=== PATIENT | female | born 1970 | race African-American/Black ===

== ENCOUNTER 2017-06-02 14:51 | Emergency (ER) | payer OTHER, SELFPAY | END 2017-06-02 15:08 | disposition home or self-care (01) | LOC: ERS 14:51 | DX: L73.9 Follicular disorder, unspecified (principal) | CPT/HCPCS: 99282 ==

== ENCOUNTER 2018-01-03 09:45 | Emergency (ER) | payer OTHER, SELFPAY ==
[2018-01-03 10:09] LABS: #Basophils 0.1 thou/uL (0.0-0.2); #Eosinphils 0.1 thou/uL (0.0-0.7); #Lymphocytes 2.2 thou/uL (1.20-3.40); #Monocytes 0.4 thou/uL (0.11-0.59); #Neutrophils 3.7 thou/uL (1.40-6.50); %Eosinophils 1.1 % (0.0-10.0); %Lymphocytes 34.4 % (21.0-51.0); %Monocytes 5.6 % (0.0-10.0); %Neutrophils 57.9 % (42.0-75.0); Hemoglobin 10.8 g/dL (12.0-16.0); Mean Corpuscular HGB CONC 31.8 g/dL (32.0-36.0); Mean Corpuscular Hemoglobin 26.4 pg (27.0-31.0); Mean Corpuscular Volume 83.1 fL (78.0-98.0); Platelet Count 300 thou/uL (130-400); RBC Distribution Width 12.9 % (11.5-14.5); Red Blood Cell (RBC) Count 4.11 mill/uL (4.20-5.40); White Blood Cell (WBC) Count 6.5 thou/uL (4.8-10.8)
[2018-01-03] MEDS ORDERED: Mag-Al 1200 mg/1200 mg/30 ML UDCUP ONE (10:43)
[2018-01-03] MEDS ORDERED: Lidocaine Viscous Sol 2% 15 ml UD Cup ONE (10:43)
[2018-01-03 10:45] LABS: ALT (SGPT) 8 U/L (8-55); AST (SGOT) 10 U/L (5-34); Alkaline Phosphatase 61 U/L (40-150); Anion Gap 10 mmol/L (10-20); BUN (Urea Nitrogen) 11 mg/dL (7.0-18.7); Bilirubin, Total 0.4 mg/dL (0.2-1.2); CK (CPK) 134 U/L (29-168); Calc. Creatinine Clearance 0 mL/min (70-130); Calcium 8.6 mg/dL (7.8-10.44); Carbon Dioxide 26 mmol/L (22-29); Chloride 108 mmol/L (98-107); Estimated GFR-MDRD 81; Globulin 3.2 g/dL (2.4-3.5); Glucose 96 mg/dL (70-105); Lipase 7 U/L (8-78); Potassium 3.6 mmol/L (3.5-5.1); Protein, Total 7.2 g/dL (6.0-8.3); Sodium 140 mmol/L (136-145)
[2018-01-03 10:49] LABS: CKMB 0.7 ng/mL (0-6.6); Troponin I Less than 0.010 ng/mL (< 0.028)
--- NOTE | 2018-01-03 11:05 | RAD ---
2 VIEW CHEST: Date: 01/03/18 No prior comparison. INDICATION: Epigastric pain. FINDINGS: Lungs are clear. No effusion. There is no free air beneath the hemidiaphragms. Cardiac silhouette is at upper limits of normal in size. Osseous structures reveal no acute findings. IMPRESSION: No focal consolidation. POS: [facility]
[2018-01-03 12:37] LABS: BHCG - Serum Negative (NEGATIVE); Pregs Control Background? CLEAR/WHITE (CLR/WHITE); Pregs Control Bar Appear? YES (CONTROL BAR)
== END 2018-01-03 12:47 | disposition home or self-care (01) ==
LOC: ERS 09:45
DX: R10.13 Epigastric pain (principal)
CPT/HCPCS: 36415; 71046; 80053; 82550; 82553; 83690; 84484; 84703; 85025; 93005

== ENCOUNTER 2018-02-19 23:37 | Emergency (ER) | payer SELFPAY ==
[2018-02-20 00:12] LABS: Bilirubin Negative (Negative); Blood, Urine Negative (Negative); Clarity CLEAR (Clear); Glucose, Urine (Dipstick) Negative (Negative); Leukocyte Negative (Negative); Nitrite Negative (Negative); Protein, Urine (Dipstick) Negative (Neg-Trace); Specific Gravity, Urine 1.024 (1.002-1.036); pH, Urine 6.5 (5.0-9.0)
[2018-02-20] MEDS ORDERED: Ondansetron ODT 4 MG TAB ONE (00:16)
[2018-02-20 00:17] LABS: Specific Gravity 1.024 (1.002-1.036)
[2018-02-20 00:19] LABS: Pregnancy Test - Urine (BHCG) Negative (Negative); Pregu Control Background? CLEAR/WHITE (CLR/WHITE); Pregu Control Bar Appear? YES (CONTROL BAR)
[2018-02-20 00:27] LABS: #Eosinphils 0.1 thou/uL (0.0-0.7); #Lymphocytes 1.7 thou/uL (1.20-3.40); #Monocytes 0.6 thou/uL (0.11-0.59); #Neutrophils 5.2 thou/uL (1.40-6.50); %Basophils 0.4 % (0.0-1.0); %Lymphocytes 22.1 % (21.0-51.0); %Monocytes 8.3 % (0.0-10.0); %Neutrophils 68.2 % (42.0-75.0); Hemoglobin 10.7 g/dL (12.0-16.0); Mean Corpuscular Hemoglobin 27.1 pg (27.0-31.0); Mean Corpuscular Volume 82.1 fL (78.0-98.0); Mean Platelet Volume 7.6 fL (7.4-10.4); Platelet Count 325 thou/uL (130-400); RBC Distribution Width 13.2 % (11.5-14.5); Red Blood Cell (RBC) Count 3.97 mill/uL (4.20-5.40); White Blood Cell (WBC) Count 7.6 thou/uL (4.8-10.8)
[2018-02-20] MEDS ORDERED: Lidocaine Viscous Sol 2% 15 ml UD Cup ONE (00:31)
[2018-02-20] MEDS ORDERED: Mag-Al 1200 mg/1200 mg/30 ML UDCUP ONE (00:31)
[2018-02-20 00:45] LABS: ALT (SGPT) 10 U/L (8-55); AST (SGOT) 10 U/L (5-34); Albumin 3.9 g/dL (3.5-5.0); Alkaline Phosphatase 62 U/L (40-150); Anion Gap 8 mmol/L (10-20); BUN (Urea Nitrogen) 8 mg/dL (7.0-18.7); Bilirubin, Total 0.3 mg/dL (0.2-1.2); Calc. Creatinine Clearance 0 mL/min (70-130); Calcium 8.8 mg/dL (7.8-10.44); Carbon Dioxide 28 mmol/L (22-29); Chloride 108 mmol/L (98-107); Estimated GFR-MDRD 76; Globulin 3.3 g/dL (2.4-3.5); Glucose 104 mg/dL (70-105); Lipase 14 U/L (8-78); Potassium 3.2 mmol/L (3.5-5.1); Protein, Total 7.2 g/dL (6.0-8.3); Sodium 141 mmol/L (136-145)
[2018-02-20 00:49] LABS: CKMB 0.6 ng/mL (0-6.6); Troponin I Less than 0.010 ng/mL (< 0.028)
[2018-02-20] MEDS ORDERED: Potassium Chloride 20 MEQ TAB ONE (01:22)
== END 2018-02-20 01:46 | disposition home or self-care (01) ==
LOC: ERS 23:37
DX: E87.6 Hypokalemia (principal); R10.13 Epigastric pain
CPT/HCPCS: 36415; 80053; 81003; 81025; 82553; 83690; 84484; 85025; 93005; Q0162

== ENCOUNTER 2018-04-04 19:41 | Emergency (ER) | payer SELFPAY ==
[2018-04-04] MEDS ORDERED: Ibuprofen 200 MG TAB ONE (20:16)
[2018-04-04] MEDS ORDERED: Acetaminophen 325 MG TAB ONE (20:16)
--- NOTE | 2018-04-04 20:34 | RAD ---
LEFT FOOT THREE VIEWS: 04/04/18 HISTORY: Left foot injury. FINDINGS: Lisfranc joint alignment is anatomic. Pes planus on the lateral view. Achilles and plantar enthesophy festus of the posterior aspect of the calcaneus. Osteophytosis throughout the foot. Mild bunion deformit y and hallux valgus. No acute fracture, dislocation, or aggressive osseous erosions. IMPRESSION: Mild degenerative changes. Heel spur. Mild hallux valgus and bunion deformity. POS: [facility]
--- NOTE | 2018-04-04 20:36 | RAD ---
RIGHT FOOT THREE VIEWS: 04/04/18 HISTORY: Stepped on a screw. Right foot injury. FINDINGS: internal fixation of the distal fibula is partially visualized. Lisfranc joint alignment is anatomic. Pes planus on the lateral view. Prominent plantar heel spur. Hallux valgus and bunion deformity. Mild scattered degenerative changes. No metallic foreign bodies a re apparent with the plantar surface of the foot. IMPRESSION: No plantar metallic foreign bodies. Hallux valgus and bunion deformity. Mild degenerative changes. Heel spur. POS: [facility]
== END 2018-04-04 20:47 | disposition home or self-care (01) ==
LOC: ERS 19:41
DX: M79.672 Pain in left foot (principal); M79.671 Pain in right foot

== ENCOUNTER 2018-11-26 15:21 | Emergency (ER) | payer SELFPAY ==
[2018-11-26 15:41] LABS: Bilirubin Small (Negative); Blood, Urine Negative (Negative); Clarity CLEAR (Clear); Glucose, Urine (Dipstick) Negative (Negative); Leukocyte Negative (Negative); Nitrite Negative (Negative); Protein, Urine (Dipstick) 30 mg/dL (Neg-Trace); Specific Gravity, Urine 1.031 (1.002-1.036); pH, Urine 5.5 (5.0-9.0)
[2018-11-26 15:43] LABS: Bacteria/HPF None Seen HPF (None Seen); Hyaline Casts/LPF 0-3 HYALINE CAST LPF (0-3 Hyaline); Pathc Cast-AUWi Flag 0.27 (0-2.49); Squamous Epithelial 0-3 HPF (0-3); WBC/HPF 0-3 HPF (0-3)
[2018-11-26] MEDS ORDERED: Ketorolac Tromethamine 30 MG/ML VIAL ONE (16:33)
== END 2018-11-26 17:20 | disposition home or self-care (01) ==
LOC: ERS 15:21
DX: M54.5 Low back pain (principal)
CPT/HCPCS: 81003; 81015; 96372; J1885

== ENCOUNTER 2019-03-15 21:24 | Emergency (ER) | payer SELFPAY ==
--- NOTE | 2019-03-15 23:05 | RAD ---
XR Foot Rt 3 View STANDARD HISTORY: Foot and ankle pain. COMPARISON: 04/04/2018 study. FINDINGS: Minimal arthritic changes of the first metatarsophalangeal joint are seen. Postoperative ch anges are again identified of the ankle. Arthritic change of the midfoot region are similar to the prior examination and calcaneal spurs are unchanged. IMPRESSION: Stable exam.
--- NOTE | 2019-03-15 23:06 | RAD ---
XR Foot Lt 3 View STANDARD HISTORY: Foot and ankle pain. COMPARISON: 04/04/2018 study. FINDINGS: Mild arthritic change the first metatarsal phalangeal joint are again identified. Talonavic ular degenerative changes are seen. Prominent calcaneal spurs are again noted. The plantar spur is larger than on the prior exam. IMPRESSION: Arthritic changes of the foot.
[2019-03-15] MEDS ORDERED: Ketorolac Tromethamine 60 MG/2 ML VIAL ONE (23:13)
[2019-03-15] MEDS ORDERED: Dexamethasone 4 mg/ml Vial ONE (23:13)
== END 2019-03-15 23:30 | disposition home or self-care (01) ==
LOC: ERS 21:24
DX: M79.671 Pain in right foot (principal); M79.672 Pain in left foot
CPT/HCPCS: J1100; J1885

== ENCOUNTER 2020-10-26 10:48 | Emergency (ER) | payer BC, SELFPAY ==
[2020-10-26] MEDS ORDERED: Albuterol 200 PUFF (6.7GM INHALER) ONE (12:09)
[2020-10-26 18:30] LABS: SARS-CoV-2 PCR by NAA Not Detected (NotDetected)
== END 2020-10-26 12:15 | disposition home or self-care (01) ==
LOC: ERS 10:48
DX: J40 Bronchitis, not specified as acute or chronic (principal); B97.89 Other viral agents as the cause of diseases classified elsewhere; Z20.822 Contact with and (suspected) exposure to COVID-19
CPT/HCPCS: 71046; 87635; 93005; U0003; U0005

== ENCOUNTER 2021-02-25 09:01 | Emergency (ER) | payer SELFPAY ==
[2021-02-25 13:01] LABS: SARS-CoV-2 NAA Rapid Test DETECTED (NotDetected)
== END 2021-02-25 10:30 | disposition home or self-care (01) ==
LOC: ERS 09:01
DX: U07.1 COVID-19 (principal)
CPT/HCPCS: 0240U; 99283

== ENCOUNTER 2021-06-22 12:14 | Emergency (ER) | payer SELFPAY ==
[2021-06-23 13:39] LABS: SARS-CoV-2 PCR by NAA Not Detected (NotDetected)
== END 2021-06-22 13:26 | disposition home or self-care (01) ==
LOC: ERS 12:14
DX: R43.8 Other disturbances of smell and taste (principal); Z20.822 Contact with and (suspected) exposure to COVID-19
CPT/HCPCS: 99284; U0003; U0005

== ENCOUNTER 2022-01-01 10:09 | Emergency (ER) | payer BC, SELFPAY ==
[2022-01-01 11:18] LABS: #Basophils 0.1 thou/uL (0.0-0.2); #Eosinphils 0.1 thou/uL (0.0-0.7); #Lymphocytes 2.4 thou/uL (1.20-3.40); #Monocytes 0.5 thou/uL (0.11-0.59); #Neutrophils 3.7 thou/uL (1.40-6.50); %Basophils 0.8 % (0.0-1.0); %Eosinophils 1.3 % (0.0-10.0); %Monocytes 6.7 % (0.0-10.0); %Neutrophils 55.2 % (42.0-75.0); Hemoglobin 9.8 g/dL (12.0-16.0); Mean Corpuscular HGB CONC 31.6 g/dL (32.0-36.0); Mean Corpuscular Hemoglobin 26.2 pg (27.0-31.0); Mean Corpuscular Volume 82.8 fL (78.0-98.0); Mean Platelet Volume 8.2 fL (7.4-10.4); Platelet Count 325 thou/uL (130-400); RBC Distribution Width 14.1 % (11.5-14.5); Red Blood Cell (RBC) Count 3.73 mill/uL (4.20-5.40); White Blood Cell (WBC) Count 6.6 thou/uL (4.8-10.8)
[2022-01-01 11:35] LABS: ALT (SGPT) 10 U/L (8-55); AST (SGOT) 12 U/L (5-34); Albumin 3.6 g/dL (3.5-5.0); Alkaline Phosphatase 58 U/L (40-110); Anion Gap 13 mmol/L (10-20); BUN (Urea Nitrogen) 9 mg/dL (7.0-18.7); Bilirubin, Total 0.6 mg/dL (0.2-1.2); Calc. Creatinine Clearance 0 mL/min (70-130); Calcium 8.7 mg/dL (7.8-10.44); Carbon Dioxide 23 mmol/L (22-29); Chloride 109 mmol/L (98-107); Estimated GFR 90; Globulin 3.5 g/dL (2.4-3.5); Glucose 93 mg/dL (70-105); Magnesium 1.9 mg/dL (1.6-2.6); Potassium 3.9 mmol/L (3.5-5.1); Protein, Total 7.1 g/dL (6.0-8.3); Sodium 141 mmol/L (136-145)
[2022-01-01] MEDS ORDERED: Acetaminophen 500 MG TAB ONE (12:11)
[2022-01-01] MEDS ORDERED: Aspirin 325 MG TAB ONE (12:11)
== END 2022-01-01 14:02 | disposition home or self-care (01) ==
LOC: ERS 10:09
DX: M25.511 Pain in right shoulder (principal); R07.89 Other chest pain; Y04.2XXA Assault by strike against or bumped into by another person, initial encounter
CPT/HCPCS: 36415; 71045; 80053; 83735; 83880; 84484; 85025; 93005

== ENCOUNTER 2022-04-21 11:24 | Emergency (ER) | payer BC, SELFPAY ==
[2022-04-21] MEDS ORDERED: Ketorolac Tromethamine 30 MG/ML VIAL ONE (13:33)
[2022-04-21 13:49] LABS: #Basophils 0.1 thou/uL (0.0-0.2); #Lymphocytes 1.7 thou/uL (1.20-3.40); #Monocytes 0.4 thou/uL (0.11-0.59); #Neutrophils 4.2 thou/uL (1.40-6.50); %Basophils 1.4 % (0.0-1.0); %Eosinophils 0.7 % (0.0-10.0); %Lymphocytes 26.6 % (21.0-51.0); %Monocytes 6.1 % (0.0-10.0); %Neutrophils 65.2 % (42.0-75.0); Hemoglobin 10.7 g/dL (12.0-16.0); Mean Corpuscular HGB CONC 31.6 g/dL (32.0-36.0); Mean Corpuscular Hemoglobin 26.2 pg (27.0-31.0); Mean Corpuscular Volume 82.7 fl (78.0-98.0); Mean Platelet Volume 8.5 fL (7.4-10.4); Platelet Count 340 thou/uL (130-400); RBC Distribution Width 13.8 % (11.5-14.5); Red Blood Cell (RBC) Count 4.09 mill/uL (4.20-5.40); White Blood Cell (WBC) Count 6.4 thou/uL (4.8-10.8)
[2022-04-21 14:06] LABS: ALT (SGPT) 11 U/L (8-55); AST (SGOT) 13 U/L (5-34); Alkaline Phosphatase 69 U/L (40-110); Anion Gap 11 mmol/L (10-20); BUN (Urea Nitrogen) 11 mg/dL (7.0-18.7); Bilirubin, Total 0.2 mg/dL (0.2-1.2); Calc. Creatinine Clearance 0 mL/min (70-130); Calcium 9.2 mg/dL (7.8-10.44); Carbon Dioxide 27 mmol/L (22-29); Chloride 106 mmol/L (98-107); Estimated GFR 77; Globulin 3.5 g/dL (2.4-3.5); Glucose 99 mg/dL (70-105); Potassium 3.7 mmol/L (3.5-5.1); Protein, Total 7.5 g/dL (6.0-8.3); Sodium 140 mmol/L (136-145)
== END 2022-04-21 15:15 | disposition home or self-care (01) ==
LOC: ERS 11:24
DX: S16.1XXA Strain of muscle, fascia and tendon at neck level, initial encounter (principal); I10 Essential (primary) hypertension; D64.9 Anemia, unspecified; X58.XXXA Exposure to other specified factors, initial encounter
CPT/HCPCS: 36415; 71045; 80053; 84484; 85025; 93005; 96372; J1885

== ENCOUNTER 2022-08-05 08:42 | Emergency (ER) | payer SELFPAY ==
[2022-08-05 09:55] LABS: #Eosinphils 0.1 thou/uL (0.0-0.7); #Lymphocytes 2.1 thou/uL (1.20-3.40); #Monocytes 0.4 thou/uL (0.11-0.59); #Neutrophils 4.2 thou/uL (1.40-6.50); %Basophils 0.7 % (0.0-1.0); %Eosinophils 1.2 % (0.0-10.0); %Monocytes 5.8 % (0.0-10.0); %Neutrophils 61.4 % (42.0-75.0); Hemoglobin 10.7 g/dL (12.0-16.0); Mean Corpuscular HGB CONC 31.3 g/dL (32.0-36.0); Mean Corpuscular Hemoglobin 26.4 pg (27.0-31.0); Mean Corpuscular Volume 84.3 fl (78.0-98.0); Mean Platelet Volume 7.7 fL (7.4-10.4); Platelet Count 385 10x3/uL (130-400); RBC Distribution Width 13.2 % (11.5-14.5); Red Blood Cell (RBC) Count 4.04 mill/uL (4.20-5.40); White Blood Cell (WBC) Count 6.8 10x3/uL (4.8-10.8)
[2022-08-05 09:59] LABS: ALT (SGPT) Less than 7 U/L (8-55); AST (SGOT) 10 U/L (5-34); Albumin 3.9 g/dL (3.5-5.0); Alkaline Phosphatase 65 U/L (40-110); Anion Gap 14 mmol/L (10-20); BUN (Urea Nitrogen) 12 mg/dL (9.8-20.1); Bilirubin, Total 0.4 mg/dL (0.2-1.2); Calc. Creatinine Clearance 0 mL/min (70-130); Carbon Dioxide 24 mmol/L (22-29); Chloride 109 mmol/L (98-107); Estimated GFR 87; Globulin 3.3 g/dL (2.4-3.5); Glucose 99 mg/dL (70-105); Potassium 4.1 mmol/L (3.5-5.1); Protein, Total 7.2 g/dL (6.0-8.3); Sodium 143 mmol/L (136-145)
[2022-08-05] MEDS ORDERED: Aspirin Chewable 81 MG TAB ONE (11:45)
[2022-08-05 13:26] LABS: Troponin I Less than 0.010 ng/mL (< 0.028)
== END 2022-08-05 14:39 | disposition home or self-care (01) ==
LOC: ERS 08:42
DX: R07.89 Other chest pain (principal); I10 Essential (primary) hypertension
CPT/HCPCS: 36415; 71045; 80053; 83880; 84484; 85025; 85379; 93005

== ENCOUNTER 2022-12-05 10:59 | Emergency (ER) | payer SELFPAY ==
[2022-12-05 11:31] LABS: #Eosinphils 0.1 thou/uL (0.0-0.7); #Monocytes 0.6 thou/uL (0.11-0.59); #Neutrophils 4.6 thou/uL (1.40-6.50); %Basophils 0.5 % (0.0-1.0); %Eosinophils 0.8 % (0.0-10.0); %Monocytes 7.3 % (0.0-10.0); %Neutrophils 60.1 % (42.0-75.0); Hemoglobin 11.3 g/dL (12.0-16.0); Mean Corpuscular HGB CONC 31.2 g/dL (32.0-36.0); Mean Corpuscular Hemoglobin 26.3 pg (27.0-31.0); Mean Corpuscular Volume 84.4 fl (78.0-98.0); Mean Platelet Volume 10.5 fL (7.4-10.4); Platelet Count 346 10x3/uL (130-400); RBC Distribution Width 15.7 % (11.5-14.5); Red Blood Cell (RBC) Count 4.29 mill/uL (4.20-5.40); White Blood Cell (WBC) Count 7.7 10x3/uL (4.8-10.8)
[2022-12-05 12:01] LABS: ALT (SGPT) 9 U/L (8-55); AST (SGOT) 13 U/L (5-34); Albumin 4.1 g/dL (3.5-5.0); Alkaline Phosphatase 63 U/L (40-110); Anion Gap 9 mmol/L (10-20); BUN (Urea Nitrogen) 10 mg/dL (9.8-20.1); Bilirubin, Total 0.3 mg/dL (0.2-1.2); Calc. Creatinine Clearance 0 mL/min (70-130); Calcium 9.5 mg/dL (7.8-10.44); Carbon Dioxide 24 mmol/L (22-29); Chloride 108 mmol/L (98-107); Estimated GFR 77; Globulin 3.8 g/dL (2.4-3.5); Glucose 83 mg/dL (70-105); Lipase 11 U/L (8-78); Potassium 3.8 mmol/L (3.5-5.1); Protein, Total 7.9 g/dL (6.0-8.3); Sodium 137 mmol/L (136-145)
[2022-12-05 12:03] LABS: Pregnancy Test - Urine (BHCG) Negative (Negative); Pregu Control Background? CLEAR/WHITE (CLR/WHITE); Pregu Control Bar Appear? YES (CONTROL BAR); Specific Gravity 1.023 (1.002-1.036)
[2022-12-05 12:18] LABS: Bacteria/HPF None Seen HPF (None Seen); Bilirubin Negative (Negative); Blood, Urine Negative (Negative); CAUTI Indications for Culture Dysuria,urgency,freq; Clarity Clear (Clear); Glucose, Urine (Dipstick) Normal (Negative); Ketone, Urine Negative (Negative); Leukocyte 25 Leu/uL (Negative); Nitrite Negative (Negative); Protein, Urine (Dipstick) 10 mg/dL (Neg-Trace); RBC/HPF 0-3 HPF (0-3); Specific Gravity, Urine 1.025 (1.002-1.036); Squamous Epithelial 0-3 HPF (0-3); Urobilinogen Normal mg/dL (Less than 2); WBC/HPF 0-3 HPF (0-3)
[2022-12-05 12:20] LABS: Urine Culture Reflex No No
== END 2022-12-05 13:04 | disposition home or self-care (01) ==
LOC: ERS 10:59
DX: R07.89 Other chest pain (principal); I10 Essential (primary) hypertension
CPT/HCPCS: 36415; 80053; 81001; 81025; 83690; 84484; 85025; 93005

== ENCOUNTER 2024-04-18 08:22 | Emergency (ER) | payer SELFPAY ==
[2024-04-18] MEDS ORDERED: Ketorolac Tromethamine 30 MG (1 mL) VIAL ONE (09:21)
[2024-04-18] MEDS ORDERED: Ondansetron PF 4 MG/2 ML Vial ONE (09:21)
[2024-04-18 09:41] LABS: #Basophils 0.04 10x3/uL (0.0-0.2); %Basophils 0.6 % (0.0-1.0); %Eosinophils 0.9 % (0.0-10.0); %Lymphocytes 36.5 % (21.0-51.0); %Monocytes 6.2 % (0.0-10.0); %Neutrophils 55.6 % (42.0-75.0); Hematocrit 37.2 % (36.0-47.0); Hemoglobin 11.2 g/dL (12.0-16.0); Mean Corpuscular HGB CONC 30.1 g/dL (32.0-36.0); Mean Corpuscular Hemoglobin 25.9 pg (27.0-31.0); Mean Corpuscular Volume 86.1 fL (78.0-98.0); Mean Platelet Volume 10.6 fL (7.4-10.4); Platelet Count 319 10x3/uL (130-400); RBC Distribution Width 14.7 % (11.5-14.5); Red Blood Cell (RBC) Count 4.32 mill/uL (4.20-5.40)
[2024-04-18 09:58] LABS: ALT (SGPT) 11 U/L (8-55); AST (SGOT) 14 U/L (5-34); Albumin 3.6 g/dL (3.5-5.0); Alkaline Phosphatase 79 U/L (40-110); Anion Gap 13 mmol/L (10-20); BUN (Urea Nitrogen) 11 mg/dL (9.8-20.1); Bilirubin, Total 0.3 mg/dL (0.2-1.2); Calc. Creatinine Clearance 0 mL/min (70-130); Calcium 9.1 mg/dL (7.8-10.44); Carbon Dioxide 21 mmol/L (22-29); Chloride 110 mmol/L (98-107); Estimated GFR 86; Globulin 4.1 g/dL (2.4-3.5); Glucose 96 mg/dL (70-105); Lipase 16 U/L (8-78); Potassium 4.1 mmol/L (3.5-5.1); Protein, Total 7.7 g/dL (6.0-8.3); Sodium 140 mmol/L (136-145)
[2024-04-18 10:00] LABS: Bilirubin Negative (Negative); Blood, Urine 2+ (Negative); CAUTI Indications for Culture Dysuria,urgency,freq; Clarity Clear (Clear); Glucose, Urine (Dipstick) Normal (Negative); Ketone, Urine Negative (Negative); Leukocyte 25 Leu/uL (Negative); Nitrite Negative (Negative); Protein, Urine (Dipstick) Negative (Neg-Trace); Specific Gravity, Urine 1.015 (1.002-1.036); Squamous Epithelial 0-3 HPF (0-3); Urobilinogen Normal mg/dL (Less than 2); WBC/HPF 0-3 HPF (0-3); pH, Urine 6.5 (5.0-9.0)
[2024-04-18 10:01] LABS: RBC/HPF 21-50 HPF (0-3)
[2024-04-18 10:04] LABS: Bacteria/HPF 1+ HPF (None Seen)
[2024-04-18 10:05] LABS: Urine Culture Reflex No No
[2024-04-18] MEDS ORDERED: Iopamidol-370 76% 500 ML MDV (1 ML CHARGE) ONE (13:35)
== END 2024-04-18 11:03 | disposition home or self-care (01) ==
LOC: ERS 08:22
DX: K59.00 Constipation, unspecified (principal); R11.2 Nausea with vomiting, unspecified; I10 Essential (primary) hypertension
CPT/HCPCS: 36415; 74177; 80053; 81001; 83690; 85025; 96374; 96375; J1885; J2405; Q9967

== ENCOUNTER 2024-05-17 18:53 | Emergency (ER) | payer SELFPAY | END 2024-05-17 20:30 | disposition home or self-care (01) | LOC: ERS 18:53 | DX: M25.562 Pain in left knee (principal); I10 Essential (primary) hypertension | CPT/HCPCS: 99283 ==

== ENCOUNTER 2024-07-01 19:40 | Emergency (ER) | payer OTHER ==
[2024-07-01 20:10] LABS: Pregnancy Test - Urine (BHCG) Negative (Negative); Pregu Control Background? CLEAR/WHITE (CLR/WHITE); Pregu Control Bar Appear? YES (CONTROL BAR); Specific Gravity 1.031 (1.002-1.036)
[2024-07-01 20:13] LABS: Bacteria/HPF Rare-Few HPF (None Seen); Bilirubin Negative (Negative); Blood, Urine Negative (Negative); CAUTI Indications for Culture Pelvic or flank pain; Clarity Clear (Clear); Glucose, Urine (Dipstick) Normal (Negative); Ketone, Urine Negative (Negative); Leukocyte 25 Leu/uL (Negative); Nitrite Negative (Negative); Protein, Urine (Dipstick) 10 mg/dL (Neg-Trace); RBC/HPF 0-3 HPF (0-3); Specific Gravity, Urine 1.031 (1.002-1.036); WBC/HPF 0-3 HPF (0-3); pH, Urine 6.5 (5.0-9.0)
[2024-07-01 20:15] LABS: Urine Culture Reflex No No
[2024-07-01] MEDS ORDERED: Ketorolac Tromethamine 30 MG (1 mL) VIAL ONE (21:14)
[2024-07-01] MEDS ORDERED: cefTRIAXone (ROCEPHIN) 1 GM VIAL ONE (21:14)
[2024-07-01] MEDS ORDERED: Lidocaine 1% PF 5 ML VIAL ONE (21:15)
[2024-07-01 22:13] LABS: #Basophils 0.04 10x3/uL (0.0-0.2); %Basophils 0.4 % (0.0-1.0); %Monocytes 7.2 % (0.0-10.0); %Neutrophils 59.1 % (42.0-75.0); Hematocrit 34.7 % (36.0-47.0); Hemoglobin 11.1 g/dL (12.0-16.0); Mean Corpuscular Hemoglobin 25.9 pg (27.0-31.0); Mean Corpuscular Volume 80.9 fL (78.0-98.0); Mean Platelet Volume 10.1 fL (7.4-10.4); Platelet Count 372 10x3/uL (130-400); RBC Distribution Width 14.2 % (11.5-14.5); Red Blood Cell (RBC) Count 4.29 mill/uL (4.20-5.40)
[2024-07-01 22:37] LABS: Anion Gap 15 mmol/L (10-20); BUN (Urea Nitrogen) 17 mg/dL (9.8-20.1); Calcium 8.7 mg/dL (7.8-10.44); Carbon Dioxide 21 mmol/L (22-29); Chloride 110 mmol/L (98-107); Glucose 115 mg/dL (70-105); Potassium 3.6 mmol/L (3.5-5.1); Sodium 142 mmol/L (136-145)
[2024-07-01 22:57] LABS: Calc. Creatinine Clearance 0 mL/min (70-130); Estimated GFR 68
== END 2024-07-01 23:32 | disposition home or self-care (01) ==
LOC: ERS 19:40
DX: N39.0 Urinary tract infection, site not specified (principal); I10 Essential (primary) hypertension; Z79.899 Other long term (current) drug therapy
CPT/HCPCS: 36415; 80048; 81001; 81025; 85025; 96372; J0696; J1885